=== PATIENT | male | born 1950 | race Two or more races ===

== ENCOUNTER 2021-10-19 14:01 | Outpatient (CLI) | payer OTHER | END 2021-10-19 14:03 | disposition home or self-care (01) | LOC: LAB 14:01 | PROVIDERS: ATTEND Internal Medicine | DX: Z11.52 Encounter for screening for COVID-19 (principal); Z20.822 Contact with and (suspected) exposure to COVID-19 ==

== ENCOUNTER 2022-02-02 08:00 | Outpatient (CLI) | payer OTHER | END 2022-02-02 08:30 | disposition home or self-care (01) | LOC: PPH VACUNA 08:00 | PROVIDERS: ATTEND Emergency Medicine Pediatric Emergency Medicine | DX: Z23 Encounter for immunization (principal) ==

== ENCOUNTER 2023-06-06 07:08 | Outpatient (CLI) | payer OTHER | END 2023-06-06 07:17 | disposition home or self-care (01) | LOC: NUCLEAR 07:08 | PROVIDERS: ATTEND Otolaryngology | DX: C06.0 Malignant neoplasm of cheek mucosa (principal) | CPT/HCPCS: 78815; A9552 ==

== ENCOUNTER 2023-06-06 09:56 | Outpatient (CLI) | payer OTHER | END 2023-06-06 10:03 | disposition home or self-care (01) | LOC: TOM 09:56 | PROVIDERS: ATTEND Otolaryngology | DX: C06.0 Malignant neoplasm of cheek mucosa (principal); C80.1 Malignant (primary) neoplasm, unspecified; D68.9 Coagulation defect, unspecified | CPT/HCPCS: 70492; 76536; Q9965 ==

== ENCOUNTER 2023-06-12 13:45 | Outpatient (CLI) | payer OTHER | END 2023-06-12 13:56 | disposition home or self-care (01) | LOC: RAD 13:45 | PROVIDERS: ATTEND Internal Medicine Infectious Disease | DX: I10 Essential (primary) hypertension (principal) ==

== ENCOUNTER 2024-06-13 09:16 | Outpatient (CLI) | payer OTHER | END 2024-06-13 09:27 | disposition home or self-care (01) | LOC: TOM 09:16 | PROVIDERS: ATTEND Internal Medicine Infectious Disease | DX: R22.1 Localized swelling, mass and lump, neck (principal) | CPT/HCPCS: 70492; Q9965 ==

== ENCOUNTER 2025-09-04 11:48 | Outpatient (CLI) | payer OTHER ==
[~2025-09-04 11:48] MED LIST: BACLOFEN5 MG PO
== END 2025-09-04 11:58 | disposition home or self-care (01) ==
LOC: TOM 11:48
PROVIDERS: ATTEND Surgery
DX: R22.1 Localized swelling, mass and lump, neck (principal)
CPT/HCPCS: 70491; Q9965